=== PATIENT | female | born 1960 | race Caucasian/White ===

== ENCOUNTER 2021-04-13 07:08 | Day surgery (SDC) | payer BC, SELFPAY ==
[~2021-04-13] VITALS: Ht 162.6 cm; Wt 86.2 kg
[2021-04-13] MEDS ORDERED: MEPERIDINE 100 MG INJ. 100 MG/ML VIAL ONE (08:09)
[2021-04-13] MEDS ORDERED: SIMETHICONE 40 MG/0.6 ML ML ONE (08:09)
[2021-04-13] MEDS: MIDAZOLAM HCL 5 MG/5 ML VIAL ONE ×4 (08:41→08:53)
[2021-04-13 13:28] VITALS: BP_SYST 105
== END 2021-04-13 10:11 | disposition home or self-care (01) ==
LOC: SDS 07:08 → SMU 07:09 → SDS 10:11
PROVIDERS: ATTEND Internal Medicine Gastroenterology
DX: Z12.11 Encounter for screening for malignant neoplasm of colon (principal); K62.1 Rectal polyp; K57.30 Diverticulosis of large intestine without perforation or abscess without bleeding; K64.8 Other hemorrhoids; Z79.899 Other long term (current) drug therapy; Z20.822 Contact with and (suspected) exposure to COVID-19
CPT/HCPCS: 36415; 45385; 87426; 88305; 99152; 99153; G0378; J2175; J2250; U0003